=== PATIENT | female | born 1970 | race African-American/Black ===

== ENCOUNTER 2016-12-21 21:08 | Emergency (ER) | payer OTHER ==
[2016-12-21 21:32] VITALS: BP 160/104; PULSE 91; TEMP 98.1; BMI 28.0
[2016-12-21] MEDS ORDERED: IBUPROFEN 400 MG TABLET (FP) PO ONE ×2 (21:45→21:48)
[2016-12-21] MEDS ORDERED: AMOX TR/POT CLAV 875MG/125MG TABLETS (FP) PO ONE (21:47)
[2016-12-21] MEDS ORDERED: AMOX TR/POT CLAV 875MG/125MG TABLETS (FP) ONE (21:49)
--- NOTE | 2016-12-21 21:53 | PDOC ---
History of Present Illness - General Chief Complaint: Bite Stated Complaint: BITE Time Seen by Provider: 12/21/16 21:41 History Source: Patient - History of Present Illness Timing/Duration: reports: just prior to arrival Location: reports: torso Past History - Past Medical History Allergies/Adverse Reactions: Allergies Allergy/AdvReac Type Severity Reaction Status Date / Time No Known Allergies Allergy Verified 12/21/16 21:31 Home Medications: Ambulatory Orders Amoxicillin/Potassium Clav [Augmentin 875-125 Tablet] 1 each PO BID #14 tablet 12/21/16 Ibuprofen [Motrin -] 800 mg PO Q6H #30 tablet 12/21/16 Nebivolol [Bystolic -] 5 mg PO DAILY 12/21/16 HTN: Yes - Psycho/Social/Smoking Cessation Hx Suicidal Ideation: No Smoking History: Never smoked Review of Systems - Review of Systems Constitutional: No: Chills, Fever Integumentary: Yes: Other (wound) *Physical Exam - Vital Signs Last Vital Signs Temp Pulse Resp BP Pulse Ox 98.1 F 91 H 28 H 160/104 100 12/21/16 21:31 12/21/16 21:31 12/21/16 21:31 12/21/16 21:31 12/21/16 21:31 - Physical Exam General Appearance: Yes: Appropriately Dressed, Moderate Distress Neck: positive: Supple Respiratory/Chest: negative: Respiratory Distress Gastrointestinal/Abdominal: positive: Other (multiple abrasions to R lower abd) Integumentary: positive: Dry, Warm Neurologic: positive: Fully Oriented, Alert, Normal Mood/Affect Medical Decision Making - Medical Decision Making 12/21/16 21:49 46 yo F, h/o HTN, p/w dog bite to abdomen. Pt states while [place] [employer], a neighbour's pit bull ran up to her and bit her unprovokingly. 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 As per officers in ED, state form will be written up and sent in by police department. Pt appears uncomfortable in ED, c/o pain. Has multiple abrasions to R lower abd. Local wound care and dressing in ED. Tetanus UTD. Dc w/ abx and wound check in 48 hrs *DC/Admit/Observation/Transfer Diagnosis at time of Disposition: Dog bite Qualifiers: Encounter type: initial encounter Qualified Code(s): W54.0XXA - Bitten by dog, initial encounter - Discharge Dispostion Disposition: HOME Condition at time of disposition: Improved - Prescriptions Prescriptions: Amoxicillin/Potassium Clav [Augmentin 875-125 Tablet] 1 each PO BID #14 tablet Ibuprofen [Motrin -] 800 mg PO Q6H #30 tablet - Patient Instructions Printed Discharge Instructions: DI for Dog Bite Additional Instructions: Please follow-up with their primary care provider or return to ED in 2 days to reassess wound
== END 2016-12-21 22:01 | disposition home or self-care (01) ==
LOC: JERFT 21:08
DX: S30.871A Other superficial bite of abdominal wall, initial encounter (principal); W54.0XXA Bitten by dog, initial encounter; Y93.89 Activity, other specified; Y92.038 Other place in apartment as the place of occurrence of the external cause; I10 Essential (primary) hypertension
CPT/HCPCS: 99281-25

== ENCOUNTER 2020-06-23 10:25 | Day surgery (SDC) | payer OTHER ==
[2020-06-22 13:44] VITALS: BMI 32.4
--- NOTE | 2020-06-23 07:44 | HP ---
Satellite [facility] - Chief Complaint Chief Complaint: left knee pain - Past Medical History Allergies/Adverse Reactions: Allergies Allergy/AdvReac Type Severity Reaction Status Date / Time No Known Allergies Allergy Verified 06/22/20 13:38 ...LMP: 04/14/20 - Current Medications Current Medications: Home Medications Medication Instructions Recorded Nebivolol [Bystolic -] 10 mg PO DAILY 12/21/16 Satellite Physical Exam - Physical Examination General Appearance: Well Nourished, Well Developed, Alert & Oriented x3 ENT: Clear Lung: Normal air movement Extremities: Other (left knee- + swelling, + ttp, + ana, + ant draw, + pivot, nvi) Neurological: Intact, Alert, Oriented [facility] Impression/Plan - Impression/Plan Impression: left knee acl tear Operative Procedure: left knee arthroscopy with ACL reconstruction Date to be Performed: 06/23/20
[2020-06-23] MEDS ORDERED: BUPIVACAINE LIPOSOME/PF (EXPAREL) 266 MG/20 ML VIAL ONE (12:35)
[2020-06-23] MEDS ORDERED: SODIUM CHLORIDE 0.9% P/F 10 ML VIAL IJ ONE (12:36)
[2020-06-23] MEDS ORDERED: MIDAZOLAM HCL 2 MG/2 ML SINGLE DOSE VIAL ONE ×4 (12:37→13:32)
[2020-06-23] MEDS ORDERED: oxyCODONE HCL 5 MG TABLET PO PRN (13:25)
[2020-06-23] MEDS ORDERED: ONDANSETRON 4 MG/2 ML VIAL IVPUSH PRN (13:25)
[2020-06-23] MEDS ORDERED: LACTATED RINGERS SOLUTION 1,000 ML IV SCH (13:30)
[2020-06-23] MEDS ORDERED: ceFAZolin SODIUM 1 GM VIAL IVPB ONE (13:33)
[2020-06-23] MEDS ORDERED: PROPOFOL 20 ML ONE ×2 (13:43)
--- NOTE | 2020-06-23 14:45 | OP ---
Operative Note - Note: Operative Date: 06/23/20 ([facility]) Pre-Operative Diagnosis: left knee acl tear Operation: left knee arthroscopy with ACL reconstruction using graftlink Post-Operative Diagnosis: Same as Pre-op Surgeon: Jimbo Santana Construction Safety Consultant: Darin Abad Anesthesia: General, Local Estimated Blood Loss (mls): 50
[2020-06-23 19:38] VITALS: BP 148/78; PULSE 16; TEMP 97.4
--- NOTE | 2020-06-24 10:22 | SPEC ---
DATE OF OPERATION: 06/23/2020 PREOPERATIVE DIAGNOSIS: Left anterior cruciate ligament tear. POSTOPERATIVE DIAGNOSIS: Left anterior cruciate ligament tear. PROCEDURE: Left anterior cruciate ligament reconstruction with GraftLink. SURGICAL ATTENDING: Jimbo Santana MD AEROSPACE STRESS ENGINEER: MARK Ruvalcaba ANESTHESIA: Regional and general. CLOSURE: An Arthrex GraftLink for ACL and 3-0 nylon for skin. ESTIMATED BLOOD LOSS: Negligible. COMPLICATIONS: None. CONDITION: To recovery room stable condition. DESCRIPTION OF OPERATIVE PROCEDURE: Patient taken to the operating room on June 23, 2020. Spinal and regional anesthesia was administered by the anesthesiologist. IV Kefzol was administered prophylactically prior to the case. The left lower extremity was prepped and draped in the usual sterile fashion. The superomedial and medial and lateral infrapatellar portal sites were made with a 15 blade followed by a blunt trocar. The outflow portal was superomedially. The scope portal was the inferolateral and the working portal was the inferomedial portal. The scope was placed in the inferolateral portal and up in the suprapatellar pouch. Pouch was visualized to be clean. The medial and lateral gutters were visualized to be clean. The undersurface of the patella and trochlea were visualized to be intact. With valgus stress on the knee, the medial compartment was entered and the medial meniscus was visualized, probed and found to be intact. The medial femoral condyle was run and found to be intact as was the medial tibial plateau. In the figure-4 position, the lateral compartment was entered. The lateral meniscus was visualized, probed, found to be intact. The lateral femoral condyle was run and found to be intact as was the lateral tibial plateau. At 90 degrees, the ACL was visualized and found to be completely torn and shredded with a stump anteriorly. This was debrided using the shaver. A notchplasty was then performed, again insufficient width and height of the notch to perform the procedure. The PCL was visualized to be intact. Using the [id number] guide and an inside-out reaming with a flip cutter, a 10-mm tunnel was made in the posterior aspect of the notch with a depth of approximately 25 mm, preserving the outer cortex. Through this tunnel was passed a shuttle suture made of an Arthrex FiberStick from outside in, exiting the portal. Next, using a tibial guide, a tibial tunnel was made just anterior to the PCL to a depth of about 30 mm inside the tibia, preserving the lateral cortex. This was done by an inside-out technique using a flip cutter as well. Through this tunnel as well was passed a FiberStick suture which was used as a shuttling suture exiting the portal as well. The GraftLink graft was prepared on the back table with a button in place and the appropriate markings on the graft. Two shuttle sutures were used to pull the graft into the knee through the inferomedial portal, one limb up in the femoral tunnel, one limb down the tibial tunnel. The femoral tunnel button was hooked on the lateral cortex. The knee was cycled. The graft was toggled up into a depth of at least 20 mm. With the knee in extension, the tibial graft was toggled using a button as well on the anteromedial cortex. At this time, the knee was cycled through, going from full extension to full flexion with excellent tension of the ACL throughout and good crossing of the PCL. Sutures were cut snug. The graft was ensured to not impede on any part of the notch and throughout the range of motion found to have good tension. The incisions were all closed with 3-0 nylon interrupted horizontal mattress sutures. A sterile pressure dressing and a knee immobilizer were applied. Patient awakened from anesthesia and transferred to recovery in stable condition. Liam [id number]
--- NOTE | 2020-06-25 17:32 | PATH ---
Surgical Pathology Report Patient Name: OUMOU MENARD [facility]. Rec. #: [id number] /Age/Gender: 1970 (Age: 49) / F Account: [id number] Location: [facility] SURGICAL Taken: 06/23/2020 Received: 06/24/2020 Reported: 06/25/2020 Physicians: Jimbo Santana M.D. Specimen(s) Received KNEE SHAVINGS, LEFT Clinical History Tear, left ACL Final Diagnosis KNEE SHAVINGS, LEFT, ACL RECONSTRUCTION: FRAGMENTS OF CARTILAGE, BONE, DENSE FIBROCONNECTIVE TISSUE, ADIPOSE TISSUE, AND SYNOVIUM. Electronically Signed Doreen Acosta M.D. Gross Description Received in formalin, labeled "left knee shavings," is a 4 x 2.5 x 1 cm. aggregate of chow-yellow soft tissue fragments. A corporate sales representative portion is submitted in one cassette. MLSZ/06/24/2020 [email or web address]/06/24/2020
== END 2020-06-23 19:55 | disposition home or self-care (01) ==
LOC: JASU-SURG 10:25
PROVIDERS: ATTEND Orthopaedic Surgery
PROC: 0MRP4JZ Replacement of Left Knee Bursa and Ligament with Synthetic Substitute, Percutaneous Endoscopic Approach (ICD-10-PCS; principal; 2020-06-23 12:30)
DX: S83.512A Sprain of anterior cruciate ligament of left knee, initial encounter (principal)
CPT/HCPCS: 29888; C1713; 81025; 88304-TC; 94760